=== PATIENT | female | born 1985 | race African-American/Black ===

== ENCOUNTER 2020-08-23 17:57 | Emergency (ER) | payer MEDICAID ==
[~2020-08-23] VITALS: Ht 157.5 cm; Wt 103.0 kg
[2020-08-23] MEDS ORDERED: ACETAMINOPHEN 325MG TABLET PO ONE (21:00)
[2020-08-24 00:11] LABS: BASOPHILS % 0.6 % (0.0-2.0); EOSINOPHILS % 1.3 % (0.0-5.0); HEMATOCRIT. 40.6 % (36.0-48.0); HEMOGLOBIN. 13.7 g/dL (12.0-16.0); LYMPHOCYTES % 35.3 % (20.0-50.0); MEAN CORPUSCULAR HEMOGLOBIN 28.9 pg (28.0-32.0); MEAN CORPUSCULAR VOLUME 85.6 fL (81.0-99.0); MONOCYTES % 7.7 % (2.0-8.0); NEUTROPHILS % 55.1 % (40.0-76.0); PLATELET 238 x1000/uL (130-400); RED BLOOD CELL COUNT 4.74 mill/uL (4.2-5.4)
[2020-08-24 00:13] LABS: CHLORIDE 108 mEq/L (98-107)
[2020-08-24] MEDS ORDERED: CLINDAMYCIN HCL 150MG CAPSULE PO NR (01:45)
[2020-08-24] MEDS ORDERED: CLIN300C12 MT (01:47)
[2020-08-24] MEDS ORDERED: IBUP-2029 MT (01:47)
[2020-08-24 02:05] VITALS: BP 156/96
[2020-08-24] MEDS ORDERED: IOHEXOL-300 100 ML BOTTLE ONE (05:41)
== END 2020-08-24 02:05 | disposition home or self-care (01) ==
LOC: ER 17:57
DX: K04.7 Periapical abscess without sinus (principal); I10 Essential (primary) hypertension
CPT/HCPCS: 36415; 70487; 80053; 81025; 83605; 85025; 87040; 99284; Q9967